=== PATIENT | female | born 2000 | race African-American/Black ===

== ENCOUNTER 2019-05-31 15:36 | Emergency (ER) | payer OTHER ==
[~2019-05-31] VITALS: Ht 160 cm; Wt 104.3 kg
[2019-05-31 16:22] VITALS: BP 126/74
--- NOTE | 2019-05-31 16:30 | NUR ---
LEFT FLANK PAIN SINCE YESTERDAY. PATIENT A/OX4, BREATHING EVEN AND UNLABORED, NO SOB NOTED. KEPT COMFORTABLE IN BED, WAITING FOR MD RENE.
[2019-05-31] MEDS ORDERED: ONDANSETRON HCL/PF 4 MG/2 ML VIAL ONE (16:51)
[2019-05-31 16:54] LABS: APPEARANCE,URINE Clear (CLEAR); BILIRUBIN,URINE Negative (NEGATIVE); BLOOD, URINE Trace-intact Ery/uL (NEGATIVE); COLOR,URINE Yellow (YELLOW); KETONES,URINE Negative (NEGATIVE); LEUKOCYTE ESTERASE ,URINE Negative (NEGATIVE); NITRITE, URINE Negative (NEGATIVE); PROTEIN,URINE Negative (NEGATIVE); UGLUCOSE Negative (NEGATIVE); UROBILINOGEN,URINE 0.2 EU/dL (0.2)
--- NOTE | 2019-05-31 16:57 | NUR ---
PATIENT REFUSING ALL MEDICATIONS AT THIS TIME. PATIENT DENIES PAIN OR NAUSEA.
[2019-05-31] MEDS ORDERED: KETOROLAC TROMETHAMINE INJ 30 MG/ML VIAL IV ONE (17:00)
[2019-05-31] MEDS ORDERED: ONDANSETRON HCL/PF 4 MG/2 ML VIAL IVP ONE (17:00)
[2019-05-31] MEDS ORDERED: IV NS 0.9% 1,000 ML BAG IV ONE (17:00)
[2019-05-31 17:07] LABS: BACTERIA,URINE Few /HPF (None Seen); RBC,URINE 0-3 /HPF (0-2); SQUAMOUS EPITHELIAL CELL,UR Few /HPF (None Seen); WBC,URINE 0-2 /HPF (0-3)
== END 2019-05-31 17:49 | disposition home or self-care (01) ==
LOC: ER 15:36
DX: N23 Unspecified renal colic (principal)
CPT/HCPCS: 81000-TC; 84703-TC; J2405; J7030